=== PATIENT | female | born 1970 | race Hispanic/Latino ===

== ENCOUNTER 2021-10-10 22:48 | Emergency (ER) | payer OTHER ==
[~2021-10-10] VITALS: Ht 172.7 cm; Wt 69.4 kg
[2021-10-11] MEDS ORDERED: CYCL-309 PO (01:46)
[2021-10-11] MEDS ORDERED: MELO7.5T12 PO (01:46)
[2021-10-11 01:52] VITALS: BP 132/74
[2021-10-11] MEDS ORDERED: IBUPROFEN 600 MG TABLET PO ONE (02:00)
[2021-10-11] MEDS ORDERED: ACETAMINOPHEN 500 MG TABLET PO ONE (02:00)
== END 2021-10-11 02:31 | disposition home or self-care (01) ==
LOC: EDH 22:48
DX: S93.401A Sprain of unspecified ligament of right ankle, initial encounter (principal); E78.00 Pure hypercholesterolemia, unspecified; Z79.1 Long term (current) use of non-steroidal anti-inflammatories (NSAID); X50.1XXA Overexertion from prolonged static or awkward postures, initial encounter; Y93.89 Activity, other specified; Y92.89 Other specified places as the place of occurrence of the external cause; Y99.8 Other external cause status
CPT/HCPCS: 29515; 73610